=== PATIENT | male | born 1990 | race Caucasian/White ===

== ENCOUNTER → 2018-10-14 | Outpatient (REF) ==
--- NOTE | 2018-10-14 15:11 | RADIOLOGY IMAGING REPORT ---
FACILITY: [facility] PATIENT NAME: Casa Marie : 1990 MR: [id number] V: [id number] EXAM DATE: ORDERING PHYSICIAN: SRAVANI WILSON TECHNOLOGIST: Location: [facility] [place] Patient: Casa Marie : 1990 Visit/Account:[id number] Date of Sevice: 10/14/2018 Examination: Limited sonography of the inguinal canals Comparisons: None. HISTORY: Groin pain particularly on the left when sitting. FINDINGS: Limited evaluation of the groin bilaterally demonstrates small bilateral inguinal hernias with Valsal va. On the right this measures 0.9 x 1.5 cm. On the left this measures 1.1 x 1.1 cm. IMPRESSION: 1. Small bilateral inguinal hernias. Report Dictated By: Edouard Nicholas MD at 10/14/2018 3:04 PM Report E-Signed By: Edouard Nicholas MD at 10/14/2018 3:06 PM WSN:[id number]
== END ==
LOC: US 11:06 → EDSTATUS 11:07 → US 11:07
PROVIDERS: ATTEND Nurse Practitioner Family
DX: K40.20 Bilateral inguinal hernia, without obstruction or gangrene, not specified as recurrent (principal)
CPT/HCPCS: 76705